=== PATIENT | male | born 1950 | race Caucasian/White ===

== ENCOUNTER 2019-06-28 13:06 | Inpatient (IN) | payer OTHER ==
[~2019-06-28] VITALS: Ht 172.7 cm; Wt 110.9 kg
[2019-06-28 15:12] LABS: BASOPHIL % 0.4 % (0-2); PLATELET COUNT 372 x10^3mcL (130-400); RED CELL DISTRIBUTION WIDTH 14.2 % (11.5-14.5)
[2019-06-28 15:20] LABS: CALCIUM 8.9 mg/dL (8.5-10.1); CARBON DIOXIDE 29.9 mmol/L (21-32); CHLORIDE SERUM 102 mmol/L (98-107); GFR1 > 60 mL/min; GLUCOSE SERUM 91 mg/dL (74-106); POTASSIUM SERUM 4.1 mmol/L (3.5-5.1); SODIUM SERUM 136 mmol/L (136-145)
[2019-06-28 15:25] LABS: ALBUMIN 3.8 g/dL (3.4-5.0); ALKALINE PHOSPHATASE 62 U/L (46-116); ALT/SGPT 39 U/L (16-63); AST/SGOT 23 U/L (15-37); BILIRUBIN TOTAL 0.4 mg/dL (0.20-1.00); TOTAL PROTEIN, SERUM 7.9 g/dL (6.4-8.2)
[2019-06-28] MEDS ORDERED: NITROGLYCERIN0.4 MG SL (17:06)
[2019-06-28] MEDS ORDERED: METFORMIN HYDR500 M1 PO (17:06)
[2019-06-28] MEDS ORDERED: NOR5 PO (17:06)
[2019-06-28] MEDS ORDERED: LIPITOR80 MG PO (17:07)
[2019-06-28] MEDS ORDERED: METOPROLOL TAR100 MG PO (17:07)
[2019-06-28] MEDS ORDERED: PRINIVIL20 MG PO (17:07)
[2019-06-28] MEDS ORDERED: ZESTRIL20 MG PO (17:08)
[2019-06-28] MEDS ORDERED: PLA75 PO (17:08)
[2019-06-28] MEDS ORDERED: ASPIR 8181 MG PO (17:08)
[2019-06-28 21:12] VITALS: BP 113/48
[2019-06-28 21:14] VITALS: Ht 172.7 cm; Wt 110.9 kg
[2019-06-29 04:40] VITALS: BP 118/55
[2019-06-29 07:40] LABS: BASOPHIL % 0.3 % (0-2); PLATELET COUNT 281 x10^3mcL (130-400); RED CELL DISTRIBUTION WIDTH 14.2 % (11.5-14.5)
[2019-06-29 07:54] LABS: ALKALINE PHOSPHATASE 54 U/L (46-116); ALT/SGPT 39 U/L (16-63); AST/SGOT 21 U/L (15-37); BILIRUBIN TOTAL 0.5 mg/dL (0.20-1.00); CALCIUM 8.5 mg/dL (8.5-10.1); CARBON DIOXIDE 30.3 mmol/L (21-32); CHLORIDE SERUM 103 mmol/L (98-107); GFR1 > 60 mL/min; GLUCOSE SERUM 98 mg/dL (74-106); MAGNESIUM 2.2 mg/dL (1.8-2.4); POTASSIUM SERUM 3.8 mmol/L (3.5-5.1); SODIUM SERUM 137 mmol/L (136-145); TOTAL PROTEIN, SERUM 6.9 g/dL (6.4-8.2)
[2019-06-29 07:58] VITALS: BP 115/53
[2019-06-29 07:58] LABS: ALBUMIN 3.2 g/dL (3.4-5.0)
[2019-06-29 10:12] VITALS: BP 118/55
== END 2019-06-29 10:39 | disposition home or self-care (01) | DRG 313 ==
LOC: ED 13:06 → DU 17:28
PROVIDERS: Emergency Medicine; ADMIT Internal Medicine Pulmonary Disease
DX: R07.89 Other chest pain (principal); I11.9 Hypertensive heart disease without heart failure; I25.10 Atherosclerotic heart disease of native coronary artery without angina pectoris; E11.9 Type 2 diabetes mellitus without complications; I25.2 Old myocardial infarction; Z79.82 Long term (current) use of aspirin; Z79.84 Long term (current) use of oral hypoglycemic drugs; Z68.37 Body mass index [BMI] 37.0-37.9, adult; Z95.5 Presence of coronary angioplasty implant and graft
CPT/HCPCS: 83880; G0378; J1644; Q0092